=== PATIENT | female | born 1960 | race Caucasian/White ===

== ENCOUNTER 2024-02-15 14:15 | Outpatient (OUT) | payer OTHER, SELFPAY ==
--- NOTE | 2024-02-14 15:14 | VEINCLINIC_ITS ---
Vital Signs 02/15/24 14:40 Height 5 ft 2 in Weight 63.503 kg BMI 25.6 BP 102/56 BP Location Left Brachial BP Position Sitting BP Cuff Size Adult BP Source Manual Cuff Respiration 16 Pulse 77 Pulse Source Monitor Pulse Oximetry (%) 99 Oxygen Delivery Method Room Air Varicose Veins Patient is a 63 year old female in this day as a referral from Dr. Norris secondary to a recent suspective superficial thrombophlebitis left lower leg. Patient has a history of spontaneous DVT x2 and is administered Xeralto. Patient had to d/c this medication for a dental procedure and developed what is a suspect clot to the left leg. Paitient has developed hemosiderin staining as well from this. Patient c/o bilateral leg pain and edema to lower legs. 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 Patient has worn bilateral leg knee high compression stockings for >5years secondary to DVT therapy. Patient has a family history of varicose veins. Patient has not been diagnosed or had treatments herself for variose veins. IRaghu MD personally performed the services described in this documentation, as scribed by Bakari Hoff RN in my presence and it is both accurate and complete. IBakari RN, am scribing for, and in the presence of, Dr. Raghu Teran and in the presence of the patient. . thigh: bilateral (symptoms left leg > right leg), knee: bilateral, calf: bilateral, ankle: bilateral and lopez: bilateral aching, cramping and dull 4 10 years Worsened in recent months: Yes standing and sitting analgesics, elevating extremities, compression stockings and exercise Reports muscle spasms of leg, heaviness, restless legs, limb pain, edema and leg edema History of lower extremity trauma: No Superficial thrombophlebitis: Yes Family history of varicose veins: yes Has patient had previous lower extremity venous surgery: No Patient has previously received the following treatment(s) for lower extremity varicose veins: Reports none Does patient have a history of : yes Does patient intend to have future pregnancies: not applicable Has patient had lower extremity venous scan with relux testing: No Support hose used: Yes Problems walking or doing physical activity: Yes How does it affect you: due pain and edema Do you walk much: Yes Do you stand much: Yes Review of Systems ROS Narrative I, Raghu Teran MD personally performed the services described in this documentation, as scribed by Bakari Hoff RN in my presence and it is both accurate and complete. I, Bakari Hoff RN, am scribing for, and in the presence of, Dr. Raghu Teran and in the presence of the patient. Status of ROS 10 or more systems reviewed and unremark able except as noted in history and below Cardiovascular Reports: edema Integumentary/Breast Reports: redness and changes in skin color Neurological Reports: weakness in extremities [facility] Medical History (Updated 02/17/24 @ 08:32 by Bakari Hoff) Varicose veins of bilateral lower extremities with pain ?I83.813 - Varicose veins of bilateral lower extremities with pain (ICD-10) Small bowel perforation ?K63.1 - Perforation of intestine (nontraumatic) (ICD-10) Ulcerative colitis ?K51.90 - Ulcerative colitis, unspecified, without complications (ICD-10) Type 2 diabetes mellitus ?E11.9 - Type 2 diabetes mellitus without complications (ICD-10) Polymyositis ?M33.20 - Polymyositis, organ involvement unspecified (ICD-10) Irritable bowel ?K58.9 - Irritable bowel syndrome, unspecified (ICD-10) Insomnia ?G47.00 - Insomnia, unspecified (ICD-10) Hypercholesteremia ?E78.00 - Pure hypercholesterolemia, unspecified (ICD-10) Female cystocele ?N81.10 - Cystocele, unspecified (ICD-10) Diverticulitis ?K57.92 - Diverticulitis of intestine, part unspecified, without perforation or abscess without bleeding (ICD-10) DDD (degenerative disc disease) Colostomy complication, unspecified ?K94.00 - Colostomy complication, unspecified (ICD-10) Chronic inflammatory demyelinating polyneuropathy ?G61.81 - Chronic inflammatory demyelinating polyneuritis (ICD-10) Carpal tunnel syndrome ?G56.00 - Carpal tunnel syndrome, unspecified upper limb (ICD-10) Brachial neuritis ?M54.12 - Radiculopathy, cervical region (ICD-10) Anxiety ?F41.9 - Anxiety disorder, unspecified (ICD-10) Surgical History (Updated 02/14/24 @ 15:29 by Bakari Hoff) S/P ORIF (open reduction internal fixation) fracture ?Z98.890 - Other specified postprocedural states (ICD-10) ?Z87.81 - Personal history of (healed) traumatic fracture (ICD-10) History of partial colectomy ?Z90.49 - Acquired absence of other specified parts of digestive tract (ICD- 10) Family History (Updated 02/15/24 @ 14:56 by Bakari Hoff) Other Family history of CHF (congestive heart failure) Family history of COPD (chronic obstructive pulmonary disease) Family history of cancer Family history of diabetes mellitus Family history of hypertension Family history of myocardial infarction Pain due to varicose veins of both lower extremities Social History (Updated 02/15/24 @ 14:57 by Bakari Hoff) Within the past year, how often did you have a drink containing alcohol: monthly or less Smoking status: Former smoker Non-prescribed substance use: denies use Meds Home Medications and Allergies Home Medications ?Medication ?Instructions ?Recorded ?Confirmed ?Type acetaminophen 500 mg tablet 500 mg PO Q6H PRN pain 02/14/24 02/14/24 History (Tylenol Extra Strength) alprazolam 0.5 mg tablet (Xanax) 0.5 mg PO DAILY 02/14/24 02/14/24 History biotin 5 mg capsule 5 mg PO DAILY 02/14/24 02/14/24 History calcium carb-ergocalciferol (vit tab PO 02/14/24 History D2) 600 mg calcium-200 unit tablet dicyclomine 20 mg tablet 20 mg PO BID 02/14/24 02/14/24 History empagliflozin 10 mg tablet 10 mg PO DAILY 02/14/24 02/14/24 History (Jardiance) famciclovir 500 mg tablet 500 mg PO BID 02/14/24 02/14/24 History ferrous sulfate 325 mg (65 mg 325 mg PO DAILY 02/14/24 02/14/24 History iron) tablet (Feosol) folic acid 400 mcg tablet 400 mcg PO DAILY 02/14/24 02/14/24 History hydrocodone 5 mg-acetaminophen 325 1 tab PO DAILY 02/14/24 02/14/24 History mg tablet immune glob G 1 gram/5 mL(20 subcut 02/14/24 History %)-prol-IgA 0-50 mcg/mL subcutaneous soln (Hizentra) mesalamine 1.2 gram tablet,delayed 4.8 g PO DAILY 02/14/24 02/14/24 History release (Lialda) metformin 1,000 mg tablet 500 mg PO BID 02/14/24 02/14/24 History methotrexate 2.5 mg/mL oral 2.5 mg PO QWEEK 02/14/24 02/14/24 History solution montelukast 10 mg tablet 10 mg PO DAILY 02/14/24 02/14/24 History polyethylene glycol 3350 17 17 g PO DAILY 02/14/24 02/14/24 History gram/dose oral powder (ClearLax) prednisone 10 mg tablet 10 mg PO DAILY 02/14/24 02/14/24 History rivaroxaban 20 mg tablet (Xarelto) 20 mg PO DAILY 02/14/24 02/14/24 History rosuvastatin 5 mg tablet (Crestor) 5 mg PO DAILY 02/14/24 02/14/24 History semaglutide 7 mg tablet (Rybelsus) 7 mg PO DAILY 02/14/24 02/14/24 History valacyclovir 1 gram tablet 1,000 mg PO DAILY 02/14/24 02/14/24 History (Valtrex) zoledronic acid 5 mg/100 mL in ea IV 02/14/24 History mannitol 5 %-water intravenous piggybck (Reclast) zolpidem 12.5 mg tablet,extended PO 02/14/24 History release,multiphase (Ambien CR) Allergies Allergy/AdvReac Type Severity Reaction Status Date / Time erythromycin base Allergy Intermediate Hives Verified 02/14/24 15:42 lisinopril Allergy Mild Cough Verified 02/14/24 15:42 Exam Narrative Exam Narrative: Raghu Laird MD personally performed the services described in this documentation, as scribed by Bakari Hoff RN in my presence and it is both accurate and complete. IBakari RN, am scribing for, and in the presence of, Dr. Raghu Teran and in the presence of the patient. Constitutional Documenting provider has reviewed patient's vital signs: yes Common normals: oriented x3 Nutritional appearance: overweight Lymph Lymphatic: no lymphedema noted Cardio Peripheral pulses: posterior tibial pulses present and dorsalis pedis pulses present Extremity Common normals: normal capillary refill General: calf tenderness and edema Right lower extremity: lower leg Right lower leg: inspection and palpation Left lower extremity: lower leg Left lower leg: inspection and palpation Neuro Common normals: oriented x3 Results Additional Findings Additional findings: Bilatearal leg reflux u/s reveals mild to moderate bilateral great saphenous insufficiency with associated dilation along with bilateral leg branch saphenous truncal tributary varicosities. Raghu Laird MD personally performed the services described in this documentation, as scribed by Bakari Hoff RN in my presence and it is both accurate and complete. Bakari Laird RN, am scribing for, and in the presence of, Dr. Raghu Teran and in the presence of the patient. Assessment and Plan Assessment and Plan (1) Varicose veins of bilateral lower extremities with pain: Plan Patient to continue use of bialteral leg knee high compression stockings, rest, elevation of bilateral feet/legs. Patient to return for EVLT of Left GSV followed by right GSV followed by microfoam chemical ablation bilateral leg branch saphenous varicosites. Raghu Laird MD personally performed the services described in this documentation, as scribed by Bakari Hoff RN in my presence and it is both accurate and complete. Bakari Laird RN, am scribing for, and in the presence of, Dr. Raghu Teran and in the presence of the patient.
--- NOTE | 2024-02-14 15:43 | W.VEIN ---
Discharge Plan Discharge Disposition: Home, Self-Care Plan of Treatment: EVLT of right GSV, left GSV, microfoam chemical ablation bilateral branch saphenous varicosites Patient Instructions: Endovenous Ablation (GEN) Print Language: Persian Discharge Date/Time: 02/15/24 15:51
--- NOTE | 2024-02-15 14:22 | VEIN_ITS ---
Patient Name: SHAKILA ONEAL MR#: [id number] : 1960 Exam Date: 02/15/2024 Ordering Doctor: [facility]OLOG[facility] REPORT PROCEDURE: VC EXT VENOUS REFLUX JARROD LMTD COMPARISON: None. INDICATIONS: Pain due to varicose veins of bilateral legs I83.813 TECHNIQUE: Duplex imaging of the lower extremity to assess the deep and superficial venous system for the presence of deep or superficial venous incompetence and to document the location and severity of disease. The study includes evaluation of the great saphenous vein (GSV), anterior accessory saphenous vein (AASV) and small saphenous vein (SSV). Patient scanned in reverse Trendelenburg and standing. FINDINGS: RIGHT LOWER EXTREMITY: Saphenofemoral Junction Reflux: Yes 7.0mm 3.4 sec GSV: Diam (mm) Reflux/ Time (sec) Proximal Thigh 7.1 Yes 1.4 Mid Thigh 3.8 Yes 0.8 Distal Thigh 3.2 Yes 1.9 Prox Calf 3.6 No Mid Calf 2.5 Yes 0.7 Saphenopopliteal Junction Reflux: 1.4mm No SSV: Proximal Calf 1.4 No Mid Calf 1.9 AASV: Proximal Thigh 3.1 No Mid Thigh Distal Thigh Thrombi: No acute or chronic thrombus visualized Compressibility: Normal Flow: Normal Preforator: Dist/med calf 2.4mm with 1.0s reflux. Tech Note: Incompetent GSV. Patent varicose vein prox/med calf 3.7mm with 0s reflux. Patent varicose vein dist/med thigh 4.0mm with 0.6s reflux. LEFT LOWER EXTREMITY: Saphenofemoral Junction Reflux: Yes 8.2 mm 1.8 sec GSV: Diam (mm) Reflux/Time (sec) Proximal Thigh 8.2 Yes 1.9 Mid Thigh 3.2 No Distal Thigh 3.6 Yes 1.1 Prox Calf 2.6 Yes 0.8 Mid Calf 2.3 No Saphenopopliteal Junction Relux: 2.1 mm Yes 1.1 SSV: Proximal Calf 1.1 No Mid Calf 1.5 No AASV: Proximal Thigh 3.3 No Mid Thigh 2.5 No Distal Thigh Thrombi: No acute or chronic thrombus visualized Compressibility: Normal Flow: Normal Shank Skinner: Prox/med calf 1.9mm with 1.1s reflux. Tech Note: Incompetent GSV. Patent varicose vein mid/med thigh 4.4mm with 1.2s reflux. CONCLUSION: 1. Moderate bilateral great saphenous vein venous insufficiency with dilatation and saphenofemoral junction reflux 2. Bilateral incompetent varicose veins Dictated by: Raghu Teran MD on 02/15/2024 at 15:25 Approved by: Raghu Teran MD on 02/15/2024 at 15:28
--- NOTE | 2024-02-15 14:22 | VEIN_ITS ---
Patient Name: SHAKILA ONEAL MR#: [id number] : 1960 Exam Date: 02/15/2024 Ordering Doctor: NARGIS LANDERS RADIOLOG[facility] REPORT PROCEDURE: [facility] - OFFICE VISIT INITIAL COMPARISON: None. PROGRESS NOTES: 63-year-old female who presents from the [facility]. 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 The patient has a history of 2 episodes of spontaneous deep vein thrombus and is on lifetime anticoagulation, currently Xarelto. The patient was taken off her Xarelto for 5 days for a dental procedure resulting in a spontaneous superficial thrombophlebitis and was seen in the emergency room. The patient also complains of bilateral hemosiderin staining, left greater than right. 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 The patient's symptoms are exacerbated by sitting and standing and partially relieved by rest and leg elevation. The patient denies any signs and symptoms to suggest arterial ischemia.4a The patient describes a family history of varicose veins, CHF, COPD, cancer, diabetes, hypertension and myocardial infarction. The patient has a social history of drinking alcohol monthly or less. The patient discontinued smoking years ago. No substance abuse history. Past medical history is significant for bowel perforation, ulcerative colitis, type 2 diabetes, polymyositis, irritable bowel syndrome, hypercholesterolemia, cystocele, diverticulitis, current colostomy. No history of pulmonary embolus See separate history and physical for medication list. No prior treatment of varicose or spider veins. The patient has worn compression stockings for years. After review of nurse notes, history and physical exam I discussed at length the pathophysiology of venous hypertension and possible treatments, therapies and strategies available. We discussed at length the importance of elevating the lower extremities above the level of the heart, increased physical activity and compression stocking use. We discussed conservative treatment with compression stockings. We discussed surgical interventions including ligation and stripping. We discussed at length the risks benefits and alternatives of intravenous laser ablation , micro foam chemical ablation and injection sclerotherapy. Ultrasound venous reflux study performed the same day was discussed at length with the patient. The report demonstrates moderate bilateral great saphenous vein venous insufficiency. Bilateral incompetent varicose veins PHYSICAL EXAM: The right leg demonstrates scattered varicose reticular and spider veins. Mild to moderate hemosiderin staining is noted along the lateral anterior and medial left lower leg and medial left ankle. Subcutaneous edema along the ankle and hindfoot The left leg demonstrates mild scattered varicose, reticular and spider veins. Minimal hemosiderin staining distal anterior and medial leg. No subcutaneous edema Both thighs, legs and feet were symmetrically warm to the touch. Good posterior tibial and dorsalis pedis pulses were present bilaterally. VEIN/VC Facility NEW Comprehensive IMPRESSION: 1. Moderate bilateral great saphenous vein venous insufficiency with dilatation saphenofemoral junction reflux venous insufficiency 2. Mild bilateral lower extremity varicose veins 3. Mild left lower extremity subcutaneous edema 4. Spontaneous left superficial thrombophlebitis 5. CEAP: C4a, Ep, As, Pr PLAN: 1. Endovenous laser ablation of the left great saphenous vein followed by the right great saphenous vein 2. Micro foam chemical a lopez of bilateral incompetent varicose veins 3. Long-term use of bilateral near thigh-high 20-30 mm compression stockings 4. Leg elevation and increased physical activity for symptomatic relief Nurse notes, history and physical were reviewed and confirmed, see attached forms. The nurse was present throughout the physical exam and consultation Dictated by: Raghu Teran MD on 02/16/2024 at 08:51 Approved by: Raghu Teran MD on 02/16/2024 at 08:59
[2024-02-15 14:40] VITALS: BP 102/56; PULSE 77; O2SAT 99; BMI 25.6
== END 2024-02-15 15:51 | disposition home or self-care (01) ==
LOC: VC 14:16
PROVIDERS: PCP Podiatrist Foot & Ankle Surgery; Visit Provider Podiatrist Foot & Ankle Surgery
DX: I83.813 Varicose veins of bilateral lower extremities with pain (principal)
CPT/HCPCS: 93970; G0463